=== PATIENT | female | born 1960 | race Caucasian/White ===

== ENCOUNTER 2017-09-01 10:08 | Outpatient (CLI) | payer OTHER ==
[2017-09-01 10:48] LABS: eGFR (African) > 60; eGFR (Non-African) > 60
== END 2017-09-01 10:10 ==
LOC: LAB 10:08
PROVIDERS: ATTEND Family Medicine
DX: E11.9 Type 2 diabetes mellitus without complications (principal); I10 Essential (primary) hypertension
CPT/HCPCS: 36415; 80053; 80061; 82043; 83036

== ENCOUNTER 2018-08-01 08:57 | Outpatient (CLI) | payer OTHER ==
[2018-08-01 09:21] LABS: BASOPHILS % 2.6 % (0.0-1.5); EOSINOPHILS % 1.5 % (0.0-6.8); MEAN CORPUSCULAR HEMOGLOBIN 35.6 pg (28.0-34.0); MONOCYTES % 5.4 % (0.0-11.0); NEUTROPHILS # 6.3 # k/uL (1.4-7.7)
[2018-08-01 09:37] LABS: eGFR (Non-African) > 60
== END 2018-08-01 09:00 ==
LOC: LAB 08:57
PROVIDERS: ATTEND Family Medicine
DX: E11.9 Type 2 diabetes mellitus without complications (principal)
CPT/HCPCS: 36415; 80053; 80061; 82043; 83036; 85025